=== PATIENT | male | born 1980 | race Caucasian/White ===

== ENCOUNTER 2017-08-03 15:20 | Emergency (ER) | payer SELFPAY ==
[~2017-08-03] VITALS: Ht 177.8 cm; Wt 75.7 kg
[~2017-08-03 15:20] MED LIST: ALPR1TAB2 PO; LAMO25TA PO; LAMO25TA5 PO; LEVO100T5 PO; LEVO125T PO; PANT40TA3 PO
[2017-08-03 15:52] LABS: BASO # 0.1 x10^3/uL (0.0-0.2); BASO % 1 % (0-3); EOS # 0.1 x10^3/uL (0.0-0.7); EOS % 1 % (0-3); HEMATOCRIT 41.3 % (39.0-53.0); HEMOGLOBIN 13.7 g/dL (13.0-17.5); LYMPH # 1.5 x10^3/uL (1.0-4.8); LYMPH % 25 % (24-48); MEAN CORPUSCULAR HEMOGLOBIN 30 pg (25-35); MEAN CORPUSCULAR HGB CONC 33 g/dL (31-37); MEAN CORPUSCULAR VOLUME 89 fL (79-100); MONO # 0.6 x10^3/uL (0.0-1.1); MONO % 10 % (0-9); NEUT # 3.8 x10^3uL (1.8-7.7); NEUT % 63 % (31-73); PLATELET COUNT 322 x10^3/uL (140-400); RED BLOOD COUNT 4.65 x10^6/uL (4.30-5.70); RED CELL DISTRIBUTION WIDTH 13.3 % (11.5-14.5); WHITE BLOOD COUNT 6.1 x10^3/uL (4.0-11.0)
[2017-08-03 16:00] LABS: CALCIUM 8.8 mg/dL (8.5-10.1); GFR 84.1; POTASSIUM 3.6 mmol/L (3.5-5.1)
[2017-08-03 16:37] VITALS: BP 119/80
--- NOTE | 2017-08-03 17:03 | PHYS DOC ---
Past History Past Medical History: Anxiety, Hypothyroid, Seizure Past Surgical History: No Surgical History Alcohol Use: None Drug Use: Benzodiazepine, Marijuana, Methamphetamine Adult General Chief Complaint Chief Complaint: FATIGUE HPI HPI Patient is a 36 year old M who presents with fatigue after his first dose of Klonopin and with Lutuda just prior to arrival. Fredi has also had recent seizure-like activity and is being worked up by a neurologist. He has no other associated symptoms at this time. He has no exacerbating or relieving factors. He is accompanied by his Review of Systems Review of Systems Constitutional: Denies fever or chills [] Eyes: Denies change in visual acuity, redness, or eye pain [] HENT: Denies nasal congestion or sore throat [] Respiratory: Denies cough or shortness of breath [] Cardiovascular: No additional information not addressed in HPI [] GI: Denies abdominal pain, nausea, vomiting, bloody stools or diarrhea [] : Denies dysuria or hematuria [] Musculoskeletal: Denies back pain or joint pain [] Integument: Denies rash or skin lesions [] Neurologic: Denies headache, focal weakness or sensory changes [] Endocrine: Denies polyuria or polydipsia [] All other systems were reviewed and found to be within normal limits, except as documented in this note. Family History Family History No pertinent family medical history was reported Current Medications Current Medications Current medications were reviewed Allergies Allergies Allergies Coded Allergies Type Severity Reaction Last Updated Verified latex Allergy Mild 12/20/14 No Physical Exam Physical Exam Constitutional: Well developed, well nourished, no acute distress, non-toxic appearance. Fatigue HENT: Normocephalic, atraumatic, Eyes: EOMI, conjunctiva normal, no discharge. [] Neck: Normal range of motion, no tenderness, supple, no stridor. [] Cardiovascular:Heart rate regular rhythm Lungs & Thorax: Bilateral breath sounds clear to auscultation [] Abdomen: Bowel sounds normal, soft, no tenderness, no masses, no pulsatile masses. [] Skin: Warm, dry, no erythema, no rash. [] Extremities: No tenderness, no cyanosis, no clubbing, ROM intact, no edema. [] Neurologic: Alert and oriented X 3, normal motor function, normal sensory function, no focal deficits noted. [] Psychologic: Affect normal, judgement normal, mood normal. [] Current Patient Data Vital Signs Vital Signs Date Time Temp Pulse Resp B/P (MAP) Pulse Ox O2 Delivery O2 Flow Rate FiO2 08/03/17 16:37 83 18 119/80 (93) 99 Room Air 08/03/17 15:30 98.1 Lab Results Laboratory Tests Test 08/03/17 15:37 White Blood Count 6.1 x10^3/uL (4.0-11.0) Red Blood Count 4.65 x10^6/uL (4.30-5.70) Hemoglobin 13.7 g/dL (13.0-17.5) Hematocrit 41.3 % (39.0-53.0) Mean Corpuscular Volume 89 fL (79-100) Mean Corpuscular Hemoglobin 30 pg (25-35) Mean Corpuscular Hemoglobin Concent 33 g/dL (31-37) Red Cell Distribution Width 13.3 % (11.5-14.5) Platelet Count 322 x10^3/uL (140-400) Neutrophils (%) (Auto) 63 % (31-73) Lymphocytes (%) (Auto) 25 % (24-48) Monocytes (%) (Auto) 10 % (0-9) H Eosinophils (%) (Auto) 1 % (0-3) Basophils (%) (Auto) 1 % (0-3) Neutrophils # (Auto) 3.8 x10^3uL (1.8-7.7) Lymphocytes # (Auto) 1.5 x10^3/uL (1.0-4.8) Monocytes # (Auto) 0.6 x10^3/uL (0.0-1.1) Eosinophils # (Auto) 0.1 x10^3/uL (0.0-0.7) Basophils # (Auto) 0.1 x10^3/uL (0.0-0.2) Sodium Level 139 mmol/L (136-145) Potassium Level 3.6 mmol/L (3.5-5.1) Chloride Level 103 mmol/L (98-107) Carbon Dioxide Level 28 mmol/L (21-32) Anion Gap 8 (6-14) Blood Urea Nitrogen 16 mg/dL (8-26) Creatinine 1.0 mg/dL (0.7-1.3) Estimated GFR (Cockcroft-Gault) 84.1 Glucose Level 101 mg/dL (70-99) H Calcium Level 8.8 mg/dL (8.5-10.1) Radiology/Procedures Radiology/Procedures Imaging was declined Course & Med Decision Making Course & Med Decision Making Pertinent Labs and Imaging studies reviewed. (See chart for details) His symptoms are most consistent with medication side effects related to new medication started just prior to the onset of his symptoms. No reversal was used due to concern for seizures. Given that he has had recent concern for seizure-like activities reversal may precipitate seizure. Dragon Disclaimer Dragon Disclaimer This electronic medical record was generated, in whole or in part, using a voice recognition dictation system. Departure Departure: Impression: Primary Impression: Fatigue Disposition: HOME, SELF-CARE Condition: STABLE Referrals: IVORY PATEL (PCP) Patient Instructions: Fatigue Additional Instructions: Fredi was seen in the emergency room for fatigue. No emergency medical condition was found on history or physical exam. He did have normal labs. He had no other associated symptoms. His symptoms are most consistent with medication side effects related to new medications started today. He was encouraged to follow-up with his doctor prescribed these new medications as soon as possible for further management. Problem Qualifiers Primary Impression: Fatigue Fatigue type: due to exposure Encounter type: initial encounter Qualified Codes: T73.2XXA - Exhaustion due to exposure, initial encounter BRUCE FERNANDES MD Aug 03, 2017 17:03
== END 2017-08-03 17:11 | disposition home or self-care (01) ==
LOC: ER 15:20
DX: T73.2XXA Exhaustion due to exposure, initial encounter (principal); R53.83 Other fatigue; E03.9 Hypothyroidism, unspecified; F41.9 Anxiety disorder, unspecified; F12.10 Cannabis abuse, uncomplicated; F15.10 Other stimulant abuse, uncomplicated; F19.10 Other psychoactive substance abuse, uncomplicated; Z91.040 Latex allergy status; X58.XXXA Exposure to other specified factors, initial encounter
CPT/HCPCS: 36415; 80048; 85025; 99284